=== PATIENT | female | born 1930 | race Caucasian/White ===

== ENCOUNTER 2019-06-16 14:32 | Inpatient (IN) | payer MEDICARE, OTHER ==
[2019-06-16 15:23] LABS: ADD MAN DIFF? NO
[2019-06-16 15:25] LABS: URINE BLOOD (Dip) POC Negative (NEGATIVE); URINE GLUCOSE (Dip) POC Negative (NEGATIVE); URINE KETONES (Dip) POC Negative (NEGATIVE); URINE LEUKOCYTE EST (Dip) POC Negative (NEGATIVE); URINE NITRITE (Dip) POC Negative (NEGATIVE); URINE TOTAL PROTEIN POC Negative (NEGATIVE)
[2019-06-16 15:26] LABS: WHITE BLOOD COUNT 6.8 10^3/ul (4.8-10.8)
[2019-06-16 15:26] LABS: BASOPHILS % 0.6 % (0.0-2.0); EOSINOPHILS # 0.1 10^3/ul (0.0-0.5); EOSINOPHILS % 1.5 % (0.0-7.0); HEMATOCRIT 25.2 % (37.0-47.0); HEMOGLOBIN 7.7 g/dl (12.0-16.0); LYMPHOCYTES # 2.1 10^3/ul (0.8-2.9); MEAN CORPUSCULAR HEMOGLOBIN 27.2 pg (29.0-33.0); MEAN CORPUSCULAR HGB CONC 30.6 g/dl (32.0-37.0); MEAN PLATELET VOLUME 9.4 fl (7.4-10.4); MONOCYTE # 0.5 10^3/ul (0.3-0.9); NEUTROPHILS % 58.3 % (39.0-77.0); PLATELET COUNT 308 10^3/UL (140-415); RED BLOOD COUNT 2.83 10^6/ul (4.20-5.40); RED CELL DISTRIBUTION WIDTH 15.4 % (11.5-14.5)
[2019-06-16 15:47] LABS: CARBON DIOXIDE 30 mmol/L (21-31); CHLORIDE 104 mmol/L (97-110); POTASSIUM 4.1 mmol/L (3.5-5.1); SODIUM 140 mmol/L (135-144)
[2019-06-16 15:48] LABS: ALANINE AMINOTRANSFERASE 14 IU/L (13-69); ALBUMIN 3.4 g/dl (3.3-4.9); ALKALINE PHOSPHATASE 51 IU/L (42-121); ANION GAP 6 (5-13); ASPARTATE AMINO TRANSFERASE 24 IU/L (15-46); BILIRUBIN,INDIRECT 0.5 mg/dl (0-1.1); BILIRUBIN,TOTAL 0.5 mg/dl (0.2-1.3); BLOOD UREA NITROGEN 17 mg/dl (7-20); CALCIUM 9.2 mg/dl (8.4-10.2); CREATININE 0.72 mg/dl (0.44-1.00); GLUCOSE 105 mg/dl (70-220); TOTAL PROTEIN 6.8 g/dl (6.1-8.1)
[2019-06-16 15:57] LABS: INR 0.91; PARTIAL THROMBOPLASTIN TIME 24.4 Sec (23.0-35.0); PROTIME 12.4 Sec (11.9-14.9)
[2019-06-16] MEDS: IOHEXOL 100 ML (17:54)
[2019-06-16] MEDS: SOD CHLORIDE 0.9% 100 ML (17:54)
[2019-06-16] MEDS: IOHEXOL 350MG/ML 50 ML BTL (17:56)
[2019-06-16] MEDS ORDERED: ACETAMINOPHEN 325 MG TAB PO (20:30)
[2019-06-16] MEDS ORDERED: ONDANSETRON 4 MG INJ IV ×2 (20:30→22:30)
[2019-06-16] MEDS ORDERED: ALBUTEROL/IPRATROPIUM (NEB) 3 ML AMP HHN (22:30)
[2019-06-16] MEDS ORDERED: NACL 0.9% 3 ML SYG IV (22:30)
[2019-06-16] MEDS: DEXTROSE 5%-0.45% NACL 1,000 ML IV (23:02)
[2019-06-17] MEDS: morphine 2 MG INJ IV ×3 (00:23→21:36)
[2019-06-17 01:10] LABS: ADD MAN DIFF? NO
[2019-06-17 01:16] LABS: WHITE BLOOD COUNT 6.5 10^3/ul (4.8-10.8)
[2019-06-17 01:16] LABS: BASOPHILS % 0.6 % (0.0-2.0); EOSINOPHILS # 0.1 10^3/ul (0.0-0.5); EOSINOPHILS % 1.5 % (0.0-7.0); HEMATOCRIT 23.3 % (37.0-47.0); HEMOGLOBIN 7.2 g/dl (12.0-16.0); LYMPHOCYTES # 2.1 10^3/ul (0.8-2.9); LYMPHOCYTES % 32.7 % (15.0-51.0); MEAN CORPUSCULAR HEMOGLOBIN 27.6 pg (29.0-33.0); MEAN CORPUSCULAR HGB CONC 30.9 g/dl (32.0-37.0); MEAN CORPUSCULAR VOLUME 89.3 fl (82.0-101.0); MEAN PLATELET VOLUME 9.6 fl (7.4-10.4); MONOCYTE # 0.6 10^3/ul (0.3-0.9); MONOCYTES % 8.6 % (0.0-11.0); NEUTROPHIL # 3.7 10^3/ul (1.6-7.5); PLATELET COUNT 282 10^3/UL (140-415); RED BLOOD COUNT 2.61 10^6/ul (4.20-5.40); RED CELL DISTRIBUTION WIDTH 15.5 % (11.5-14.5)
[2019-06-17 01:38] LABS: ALANINE AMINOTRANSFERASE 16 IU/L (13-69); ALBUMIN 3.1 g/dl (3.3-4.9); ALBUMIN/GLOBULIN RATIO 1.03; ALKALINE PHOSPHATASE 44 IU/L (42-121); ANION GAP 7 (5-13); ASPARTATE AMINO TRANSFERASE 22 IU/L (15-46); BILIRUBIN,INDIRECT 0.6 mg/dl (0-1.1); BILIRUBIN,TOTAL 0.6 mg/dl (0.2-1.3); BLOOD UREA NITROGEN 15 mg/dl (7-20); CALCIUM 8.9 mg/dl (8.4-10.2); CARBON DIOXIDE 28 mmol/L (21-31); CHLORIDE 104 mmol/L (97-110); CREATININE 0.65 mg/dl (0.44-1.00); GLUCOSE 131 mg/dl (70-220); POTASSIUM 4.1 mmol/L (3.5-5.1); SODIUM 139 mmol/L (135-144); TOTAL PROTEIN 6.1 g/dl (6.1-8.1)
[2019-06-17] MEDS: PANTOPRAZOLE 40 MG INJ IV (06:13)
[2019-06-17 06:26] LABS: MAGNESIUM 1.9 mg/dl (1.7-2.5)
[2019-06-17] MEDS: SOD CHLORIDE 0.9% 250 ML IV* (10:46)
[2019-06-17] MEDS: TRIMETHOPRIM/SULFAMETHOX (DS) TAB PO ×2 (10:55→20:32)
[2019-06-17] MEDS: DEXTROSE 5%-0.45% NACL 1,000 ML IV (10:57)
[2019-06-17 12:56] LABS: IMMEDIATE SPIN CROSSMATCH 1 1
[2019-06-17 18:19] LABS: HEMATOCRIT 26.5 % (37.0-47.0); HEMOGLOBIN 8.3 g/dl (12.0-16.0)
[2019-06-18] MEDS: DEXTROSE 5%-0.45% NACL 1,000 ML IV ×2 (01:33→15:18)
[2019-06-18] MEDS: PANTOPRAZOLE 40 MG INJ IV (05:44)
[2019-06-18 06:02] LABS: ADD MAN DIFF? NO
[2019-06-18 06:06] LABS: BASOPHILS % 0.7 % (0.0-2.0); EOSINOPHILS # 0.2 10^3/ul (0.0-0.5); EOSINOPHILS % 3.8 % (0.0-7.0); HEMATOCRIT 28.3 % (37.0-47.0); HEMOGLOBIN 8.8 g/dl (12.0-16.0); LYMPHOCYTES # 1.8 10^3/ul (0.8-2.9); LYMPHOCYTES % 33.3 % (15.0-51.0); MEAN CORPUSCULAR HEMOGLOBIN 27.2 pg (29.0-33.0); MEAN CORPUSCULAR HGB CONC 31.1 g/dl (32.0-37.0); MEAN CORPUSCULAR VOLUME 87.6 fl (82.0-101.0); MEAN PLATELET VOLUME 9.3 fl (7.4-10.4); MONOCYTE # 0.5 10^3/ul (0.3-0.9); MONOCYTES % 8.4 % (0.0-11.0); NEUTROPHIL # 2.9 10^3/ul (1.6-7.5); NEUTROPHILS % 53.4 % (39.0-77.0); PLATELET COUNT 281 10^3/UL (140-415); RED BLOOD COUNT 3.23 10^6/ul (4.20-5.40); RED CELL DISTRIBUTION WIDTH 16.1 % (11.5-14.5)
[2019-06-18 06:06] LABS: WHITE BLOOD COUNT 5.5 10^3/ul (4.8-10.8)
[2019-06-18 06:32] LABS: MAGNESIUM 1.9 mg/dl (1.7-2.5)
[2019-06-18 06:35] LABS: ANION GAP 6 (5-13); BLOOD UREA NITROGEN 9 mg/dl (7-20); CALCIUM 8.4 mg/dl (8.4-10.2); CARBON DIOXIDE 27 mmol/L (21-31); CHLORIDE 106 mmol/L (97-110); GLUCOSE 109 mg/dl (70-220); POTASSIUM 4.1 mmol/L (3.5-5.1); SODIUM 139 mmol/L (135-144)
[2019-06-18] MEDS: TRIMETHOPRIM/SULFAMETHOX (DS) TAB PO (09:47)
[2019-06-18 16:54] LABS: HEMATOCRIT 27.9 % (37.0-47.0); HEMOGLOBIN 8.8 g/dl (12.0-16.0)
== END 2019-06-18 19:02 | disposition home or self-care (01) | DRG 920 ==
LOC: E/R 14:32 → 6WM 20:17
PROC: 30233N1 Transfusion of Nonautologous Red Blood Cells into Peripheral Vein, Percutaneous Approach (ICD-10-PCS; principal; 2019-06-17)
DX: I97.638 Postprocedural hematoma of a circulatory system organ or structure following other circulatory system procedure (principal); L97.919 Non-pressure chronic ulcer of unspecified part of right lower leg with unspecified severity; D50.0 Iron deficiency anemia secondary to blood loss (chronic); I10 Essential (primary) hypertension; I70.239 Atherosclerosis of native arteries of right leg with ulceration of unspecified site
CPT/HCPCS: 36415; 36430; 75635; 80048; 80053; 81003; 83735; 84100; 85014; 85018; 85025; 85610; 85730; 86850; 86900; 86901; 86920; 87081; 93005; 99285-25